=== PATIENT | male | born 1995 | race Caucasian/White ===

== ENCOUNTER 2019-01-18 20:31 | Emergency (ER) | payer OTHER ==
[~2019-01-18] VITALS: Ht 170.2 cm; Wt 78.0 kg
[~2019-01-18 20:31] MED LIST: BACITUD TOP; CYCL10TA7 PO; IBUP-1542 PO
[2019-01-18 20:36] VITALS: Ht 170.2 cm; Wt 78.0 kg
[2019-01-18] MEDS ORDERED: IBUPROFEN 600 MG TAB PO ONE (22:30)
[2019-01-18] MEDS ORDERED: BACITRACIN/POLYMYXIN 28.35 GM OINT TOP ONE (22:30)
[2019-01-18] MEDS ORDERED: CYCLOBENZAPRINE 10 MG TAB PO ONE (22:30)
[2019-01-18 22:56] VITALS: BP 128/80; PULSE 86; RESP 16
== END 2019-01-18 22:57 | disposition home or self-care (01) ==
LOC: FTE 20:31
DX: S50.811A Abrasion of right forearm, initial encounter (principal); M62.838 Other muscle spasm; V89.2XXA Person injured in unspecified motor-vehicle accident, traffic, initial encounter
CPT/HCPCS: Z7502; Z7610; 99283